=== PATIENT | female | born 1980 | race Caucasian/White ===

== ENCOUNTER 2017-06-08 06:54 | Emergency (ER) | payer OTHER, BC ==
[~2017-06-08] VITALS: Ht 162.6 cm; Wt 56.0 kg
[~2017-06-08 06:54] MED LIST: AMOX875T PO; LORTA5 PO
[2017-06-08 06:58] VITALS: BP 119/75; PULSE 89; RESP 16; TEMP 97.9; O2SAT 100
[2017-06-08] MEDS ORDERED: METR0.7512 VAGINAL (07:07)
[2017-06-08] MEDS ORDERED: IBUP1TAB7 PO (07:24)
[2017-06-08] MEDS ORDERED: CYCL10TA PO (07:24)
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
== END 2017-06-08 08:13 | disposition home or self-care (01) ==
LOC: PHED 06:54
DX: S16.1XXA Strain of muscle, fascia and tendon at neck level, initial encounter (principal); S39.012A Strain of muscle, fascia and tendon of lower back, initial encounter; S29.012A Strain of muscle and tendon of back wall of thorax, initial encounter; V43.53XA Car driver injured in collision with pick-up truck in traffic accident, initial encounter
CPT/HCPCS: 72040; 72072; 72100; 99283

== ENCOUNTER 2017-07-20 07:32 | Emergency (ER) | payer OTHER, BC ==
[~2017-07-20] VITALS: Ht 165.1 cm; Wt 56.8 kg
[~2017-07-20 07:32] MED LIST changes: -AMOX875T PO; +CYCL10TA PO; +IBUP1TAB7 PO; -LORTA5 PO; +METR0.7512 VAGINAL
[2017-07-20 07:43] VITALS: BP 108/70; PULSE 79; RESP 16; TEMP 98.7; O2SAT 100
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
== END 2017-07-20 10:39 | disposition home or self-care (01) ==
LOC: PHED 07:32
DX: N63.20 Unspecified lump in the left breast, unspecified quadrant (principal)
CPT/HCPCS: 71250; 99283